=== PATIENT | male | born 1960 | race Caucasian/White ===

== ENCOUNTER 2020-02-20 07:58 | Emergency (ER) | payer OTHER ==
[2020-02-20] MEDS ORDERED: KETOROLAC TROMETHAMINE INJ 30 MG/ML VIAL IM ONE (08:56)
--- NOTE | 2020-02-20 09:09 | ED.PDOC ---
History of Present Illness - General Chief Complaint: General Stated Complaint: Right rib pain Time Seen by Provider: 02/20/20 08:14 Source: patient, RN notes reviewed, Vital Signs reviewed - History of Present Illness Initial Comments: Patient is a 59-year-old white male who presents with complaints of right chest wall pain. Patient was crawling around on his screen yesterday and noted pain last night and then this morning became worse. The pain is sharp and stabbing in nature. It is worse with deep inspiration or palpation. It is only better when he takes very shallow breaths. The pain is nonradiating. It is not exertionally related. It is moderate in intensity. Timing/Duration: 24 hours, getting worse Severity: moderate Associated Symptoms: denies symptoms Allergies/Adverse Reactions: Allergies NO KNOWN ALLERGY Allergy (Verified 02/20/20 08:57) Review of Systems - Review of Systems Constitutional: States: no symptoms reported, see HPI. Denies: chills, fever, malaise EENTM: States: no symptoms reported Respiratory: States: no symptoms reported. Denies: cough, short of breath, stridor Cardiology: States: see HPI, chest pain. Denies: palpitations, syncope Gastrointestinal/Abdominal: States: no symptoms reported. Denies: abdominal pain, diarrhea, nausea Genitourinary: States: no symptoms reported Musculoskeletal: States: no symptoms reported. Denies: back pain, neck pain Skin: States: no symptoms reported. Denies: change in color, rash Neurological: States: no symptoms reported. Denies: numbness, paresthesia, tremors, weakness Endocrine: States: no symptoms reported Hematologic/Lymphatic: States: no symptoms reported All other Systems: No Change from Baseline Past Medical History (General) - Patient Medical History Hx Seizures: No Hx Stroke: No Hx Dementia: No Hx Asthma: No Hx of COPD: No Hx Cardiac Disorders: No Hx Congestive Heart Failure: No Hx Pacemaker: No Hx Hypertension: Yes Hx Thyroid Disease: No Hx Diabetes: No Hx Gastroesophageal Reflux: No Hx Renal Disease: No Hx Cancer: No Hx of HIV: No Hx Hepatitis C: No Hx MRSA: No Surgical History: no surgical history - Vaccination History Hx Influenza Vaccination: No Hx Pneumococcal Vaccination: No - Social History Hx Tobacco Use: Yes Hx Chewing Tobacco Use: Yes Hx Alcohol Use: Yes Family Medical History - Family History Mother Family History: Unknown Living Status: Unknown Physical Exam - Physical Exam General Appearance: Alert, Comfortable, Well Developed, Well Groomed, Well Hydrated, Well Nourished Eye Exam: bilateral normal Ears, Nose, Throat: hearing grossly normal, normal ENT inspection Neck: non-tender, full range of motion, supple, normal inspection Respiratory: lungs clear, other - Tenderness to palpation of the right chest wall. There is no crepitus or step-offs. Patient is splinting with his respirations. 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 02/20/20 09:41 Patient's EKG is normal. Checks x-ray shows some patchy opacities consistent with pneumonia or atelectasis. I suspect it is atelectasis as the patient is afebrile, without cough and is splinting which is more consistent with atelectasis. Patient is improved after IM Toradol. Plan on discharge home with patient to take [id number] Motrin. I discussed this plan of care with the patient he voices understanding and agreement. Nick Lerner M.D. #[id number] - Results/Orders Results/Orders: EKG performed 20 Feb 2020 at 0818 hrs.: Normal sinus rhythm at 75 bpm, normal axis deviation, no ST or T wave changes, normal EKG. EXAM DESCRIPTION: Chest,2 Views CLINICAL HISTORY: 59 years Male, right chest wall pain COMPARISON: None. FINDINGS: 2 views/radiographs Heart size and pulmonary vessels are within normal limits. There is no pneumothorax or pleural effusion. Patchy bibasilar airspace disease. The soft tissues are unremarkable. No acute osseous findings. Atherosclerotic disease. IMPRESSION: Patchy bibasilar airspace disease; atelectasis or pneumonia. Electronically signed by: Vicente Bray MD 02/20/2020 9:13 AM Departure - Departure Clinical Impression: Costochondritis, acute Closed rib fracture Qualifiers: Encounter type: initial encounter Rib fracture type: single rib Laterality: right Qualified Code(s): S22.31XA - Fracture of one rib, right side, initial encounter for closed fracture Time of Disposition: 10:06 Disposition: Discharge to Home or Self Care Condition: Good Departure Forms: ED Discharge - Pt. Copy, Patient Portal Self Enrollment Instructions: Rib Fracture (DC), Costochondritis (DC) Diet: resume usual diet Activity: increase activity as tolerated
--- NOTE | 2020-02-20 09:15 | RAD ---
EXAM DESCRIPTION: Chest,2 Views CLINICAL HISTORY: 59 years Male, right chest wall pain COMPARISON: None. FINDINGS: 2 views/radiographs Heart size and pulmonary vessels are within normal limits. There is no pneumothorax or pleural effusion. Patchy bibasilar airspace disease. The soft tissues are unremarkable. No acute osseous findings. Atherosclerotic disease. IMPRESSION: Patchy bibasilar airspace disease; atelectasis or pneumonia. Electronically signed by: Vicente Bray MD 02/20/2020 9:13 AM CDT
[2020-02-20 10:09] VITALS: BP 151/89; TEMP 97.4
[2020-02-20 10:25] VITALS: O2SAT 94
== END 2020-02-20 10:19 | disposition home or self-care (01) ==
LOC: ER 07:58
DX: M94.0 Chondrocostal junction syndrome [Tietze] (principal); S22.31XA Fracture of one rib, right side, initial encounter for closed fracture; I10 Essential (primary) hypertension; R07.89 Other chest pain; F17.200 Nicotine dependence, unspecified, uncomplicated; X58.XXXA Exposure to other specified factors, initial encounter; Y92.9 Unspecified place or not applicable
CPT/HCPCS: 71046; 93005; J1885